=== PATIENT | female | born 1980 | race African-American/Black ===

== ENCOUNTER 2020-06-16 08:50 | Emergency (ER) | payer OTHER ==
[~2020-06-16] VITALS: Ht 172.7 cm; Wt 104.3 kg
[2020-06-16] MEDS ORDERED: NEURONTIN300 MG PO (09:14)
[2020-06-16] MEDS ORDERED: ABILIFY MYCITE5 MG PO (09:14)
[2020-06-16] MEDS ORDERED: EFFEXOR XR150 MG PO (09:14)
[2020-06-16 09:45] LABS: URINE BLOOD 2+ (Negative); URINE CLARITY SL CLOUDY; URINE COLOR YELLOW; URINE GLUCOSE-RANDOM* NEGATIVE (Negative); URINE KETONES 1+ (Negative); URINE LEUKOCYTES-REFLEX NEGATIVE (Negative); URINE NITRITE-REFLEX NEGATIVE (Negative); URINE PROTEIN (DIPSTICK) NEGATIVE (Negative); URINE SPECIFIC GRAVITY 1.025 (1.005-1.035)
[2020-06-16 09:47] LABS: ICTOTEST (BILI CONFIRMATORY) Negative (Negative); URINE BILIRUBIN NEGATIVE (Negative)
[2020-06-16 09:54] LABS: SQUAMOUS >10 Many /LPF (0-3)
[2020-06-16 09:55] LABS: CASTS None Seen /LPF (None Seen); CRYSTALS None Seen /LPF (None Seen)
[2020-06-16 09:56] LABS: BACTERIA-REFLEX 1-9 Few /HPF (None Seen); URINE RBC 3-10 Few /HPF (0-2)
[2020-06-16 09:57] LABS: URINE WBC-REFLEX 0-5 Rare /HPF (0-5)
[2020-06-16 11:15] LABS: ABSOLUTE NEUTROPHILS 5.4 thou/uL (1.4-8.2); BASOPHILS 1.2 % (0.0-2.0); EOSINOPHILS 1.5 % (0.0-3.0); MCH 28.1 pg (26.0-34.0); MCHC 32.3 g/dL (28.0-37.0); MCV 86.8 fL (80.0-100.0); MONOCYTES 6.5 % (1.0-8.0); PLATELET COUNT 433 thou/uL (150-400); POLYS 53.8 % (36.0-66.0); RBC 4.26 mil/uL (4.20-5.00); RDW 15.9 % (10.5-14.5); WBC 10.1 thou/uL (4.0-11.0)
[2020-06-16 11:24] LABS: CALCIUM 9.2 mg/dL (8.5-10.1); CREATININE 1.1 mg/dL (0.6-1.0); POTASSIUM 3.5 mmol/L (3.5-5.1)
[2020-06-16 11:30] LABS: ALBUMIN 3.4 g/dL (3.4-5.0); TOTAL BILIRUBIN 0.5 mg/dL (0.2-1.0)
[2020-06-16 12:18] VITALS: BP 131/81
== END 2020-06-16 12:22 | disposition home or self-care (01) ==
LOC: ER 08:50
PROVIDERS: Emergency Medicine
DX: N83.201 Unspecified ovarian cyst, right side (principal); J45.909 Unspecified asthma, uncomplicated; Z79.899 Other long term (current) drug therapy